=== PATIENT | female | born 1990 | race Caucasian/White ===

== ENCOUNTER 2016-05-14 05:31 | Inpatient (IN) | payer OTHER ==
[~2016-05-14] VITALS: Ht 163.8 cm; Wt 124.7 kg
[2016-05-14] MEDS ORDERED: CeFAZolin Inj 2 GM in IV Premix 1 EACH IV ONE (06:00)
[2016-05-14] MEDS ORDERED: Lactated Ringer's 1,000 ML IV SCH (06:00)
[2016-05-14] MEDS ORDERED: Carboprost 250 mCg/mL Inj IM PRN ×2 (06:00→09:35)
[2016-05-14] MEDS ORDERED: Oxytocin 10 Unit/mL Inj IM PRN ×2 (06:00→09:35)
[2016-05-14] MEDS ORDERED: CeFAZolin Inj 2 GM in IV Premix 1 EACH IV SCH (06:00)
[2016-05-14] MEDS ORDERED: Sodium Citrate-Citric Acid 15 mL Solution PO SCH (06:00)
[2016-05-14] MEDS ORDERED: Hemorrhage Kit, Post Partum XX ONE ×2 (06:00→09:35)
[2016-05-14] MEDS ORDERED: Methylergonovine 0.2 mg/mL Inj IM PRN ×2 (06:00→09:35)
[2016-05-14 06:28] LABS: Mean Corpuscular Hemoglobin 27.9 pg (27.0-35.0); Mean Corpuscular Volume 85.7 fL (81-100)
[2016-05-14] MEDS ORDERED: Morphine PF 1 mg/mL 10 mL Inj ONE (07:24)
[2016-05-14] MEDS ORDERED: EPHEDrine Sulfate 50 mg/mL Inj IVPUSH PRN (08:20)
[2016-05-14] MEDS ORDERED: Lactated Ringer's 1,000 ML IV PRN (08:20)
[2016-05-14] MEDS ORDERED: Ondansetron 2 mg/mL 2 mL Inj IVPUSH PRN (08:20)
[2016-05-14] MEDS ORDERED: MetoCLOpramide 5 mg/mL 2 mL Inj IVPUSH PRN (08:20)
[2016-05-14] MEDS ORDERED: HYDROmorphone 1 mg/mL Inj IVPUSH PRN (08:20)
[2016-05-14] MEDS ORDERED: Dexamethasone 4 mg/mL Inj IVPUSH PRN (08:20)
[2016-05-14] MEDS ORDERED: Morphine PF 1 mg/mL 10 mL Inj EPIDURAL ONE (08:20)
[2016-05-14] MEDS ORDERED: Atropine 0.4 mg/mL Inj IV PRN (08:20)
[2016-05-14] MEDS ORDERED: fentaNYL-PF 50 mCg/mL 2 mL Inj IVPUSH PRN (08:20)
--- NOTE | 2016-05-14 08:20 | PCM.HPANE ---
Patient Data Surgeon Admitting Provider:Jovany Rose MD Attending Provider:Jovany Rose MD Primary Care Physician:Zane Other Provider:Sandi Owen Anesthesia Reason for Visit Repeat Repeat Ht/WT & BMI Body Mass Index Allergies Coded Allergies: No Known Allergies (Unverified Allergy, 11/28/11) Past Anesthesia History Anesthesia History: Denies:: Abnormal Airway, Anesthesia Reactions, Difficult Intubation Diabetes History Hx Diabetes?: No MRSA MRSA: No History History of ENT Problems?: No HEENT History: Denies:: Abnormal Airway Cataracts Difficult Intubation Dysphagia Hearing Problem Sinus Problem TMJ Hx of Heart Problems?: No Cardiovascular History: Denies:: Abdominal Aortic Aneurism Atrial Fibrillation Cardiac Surgery Chest Pain Congestive Heart Failure Edema Heart Murmur Hypertension Irregular Heartbeat Pacemaker Rheumatic Fever Thrombophlebitis Valvular Heart Disease Hx of Respiratory Problem?: No Respiratory History: Denies:: Asthma COPD Chest Surgery Cough Dyspnea Emphysema Hemoptysis Oxygen Administration Pneumonia Pulmonary Embolism Tuberculosis Hx Neurologic Problems?: Yes Neurological History: Positive for:: Headaches Denies:: Alzheimer's Disease CVA Dementia Dizziness Multiple Sclerosis Parkinson's Disease Seizures Hx of GI Problems?: No Gastrointestinal History: Denies:: Cirrhosis Diverticulitis Gastroesphageal Reflux Gastrointestinal Bleeding Heartburn Hepatitis Hiatal Hernia Rectal Bleeding Hx of Problems?: No Genitourinary History: Denies:: HX of Hemodialysis Kidney Stones Urinary Tract Infection Female Hx: Positive for:: Currently Skin History: Denies:: History Skin Disorders? Pressure Ulcers Hx Musculoskeletal Problems?: No Musculoskeletal History: Denies:: Back Injury Degenerative Joint Joint Replacement Musculoskeletal Trauma Systemic Lupus Hx of Psycho/Social Problems?: No Psycho Social History: Denies:: Anxiety Bipolar Disorder Hx Depression Suicide Attempt Hx Surgeries?: Yes (appy) Hx Any Other Health Problems?: No Other History: Denies:: Cancer Endocrine Disease Hospitalization Thyroid Disease History Blood Transfusions: Denies:: Blood Transfusions Hx Diabetes: No Hx Alcohol Use: NoHx Substance Use: No Smoking Status: Never Smoker Stop/Bang Risk Assessment Category Category 1A: Patient has history of documented sleep apnea, and HAS NOT received any narcotic, sedative or anesthesia administration during this stay. Category 1B: Patient has history of documented sleep apnea, and HAS received any narcotic , sedative or anesthesia administration during this stay Category 2: Patient has SUSPECTED Obstructive Sleep Apnea, and HAS received any narcotic , sedative or anesthesia administration during this stay. Category 3: Patient has SUSPECTED Obstructive Sleep Apnea and HAS NOT received narcotic, sedative or anesthesia administration during this stay. Category 4: Outpatient in Procedural Areas with known sleep apnea or who screen positive for High Risk via the STOP/BANG questionnaire. Exam Exam General Appearance: Alert, Oriented X3, Cooperative, No Acute Distress HEENT/AIRWAY: MP 2 Lungs: Clear to Auscultation, Normal Air Movement Heart: Exam Unremarkable, Regular Rate/Rhythm, No Murmurs/Rubs/Gallops Meds/Labs/Diagnostics Admission Meds Current Medications Lactated Ringer's (Lr) 1,000 ml @ 125 mls/hr Q8H IV Last administered on 06:23; Start 05/14/16 at 06:00; Stop 05/14/16 at 13:59 Citric Acid/ Sodium Citrate 30 ml 30 ml PREOP PO Last administered on 07:15; Start 05/14/16 at 06:00; Stop 05/14/16 at 06:01; Status DC Cefazolin Sodium/ Dextrose/Premix (Ancef Inj/IV Premix) 50 ml @ 150 mls/hr PREOP ONCE IV Last administered on 05/14/16 07:15; Start 05/14/16 at 06:00; Stop 05/14/16 at 06:19; Status DC Labs Test 05/14/16 05:55 White Blood Count 8.3th/mm3 (3.8-10.1) Red Blood Count 4.33mil/mm3 (3.90-5.20) Hemoglobin 12.1g/dL (12.0-15.6) Hematocrit 37.1% (35.0-46.0) Mean Corpuscular Volume 85.7fL (81-100) Mean Corpuscular Hemoglobin 27.9pg (27.0-35.0) Mean Corpuscular Hemoglobin Concent 32.6% (32.0-37.0) Red Cell Distribution Width 12.9% (12.3-15.4) Platelet Count 178bil/L (150-400) Plan Impression Patient chart reviewed, patient interviewed and anesthestic plan with risks, benefits, and alternatives discussed, and informed consent obtained. ASA Physical Status: ASA2 Mod Systemic Disease Anesthetic Plan: SAB Bene/Risks/Altern/Consents: Yes HP Complete Prior to Induction: Yes Jl Bryson MD May 14, 2016 08:20
--- NOTE | 2016-05-14 09:31 | PCM.ANEP1 ---
Post Anesthesia Phase 1 PACU Phase 1 Assessment Vital Signs VSS Anesthetic Administered: SAB Level of Alertness: Awake, talking YATES's with Equal Strength: No Pain: No Nausea or Vomiting: No Oxygen Delivery: Room Air Lungs: Clear to Auscultation, Normal Air Movement Dermatome Level: T10 (Umbilicus) Jl Bryson MD May 14, 2016 09:31
--- NOTE | 2016-05-14 09:32 | PCM.ANEP2 ---
Post Anesthesia Evaluation ASA/CMS Post Anesthesia VS in Patient's Normal Range?: Yes Resp Stable; Airway Patent?: Yes CV Function & Hydration Stable: Yes Mental Status Recovered?: Yes Pain control Satisfactory?: Yes N/V Control Satisfactory?: Yes Jl Bryson MD May 14, 2016 09:32
[2016-05-14] MEDS ORDERED: LANOlin HPA 7 Gm Ointment TOPICAL PRN (09:35)
[2016-05-14] MEDS ORDERED: diphenhydrAMINE 50 mg Capsule PO PRN (09:35)
[2016-05-14] MEDS ORDERED: HYDROcodone-APAP 5-325 mg Tablet PO PRN (09:35)
[2016-05-14] MEDS ORDERED: Acetaminophen IV 1,000 MG in IV Premix 1 EACH IV PRN (09:35)
[2016-05-14] MEDS ORDERED: Sodium Chloride LOK Flush 10 mL Syringe IVFLUSH PRN (09:35)
[2016-05-14] MEDS ORDERED: Oxytocin 30 Units/500 mL LR 30 UNITS in IV Premix 1 EACH IV PRN (09:35)
[2016-05-14] MEDS ORDERED: Phenylephrine/NS 100 mCg/mL 10 mL Syringe IVPUSH ONE (13:22)
[2016-05-14] MEDS ORDERED: Dexamethasone 4 mg/mL Inj ONE (13:22)
[2016-05-14] MEDS ORDERED: Ondansetron 2 mg/mL 2 mL Inj ONE (13:22)
[2016-05-14] MEDS ORDERED: Oxytocin 10 Unit/mL Inj ONE (13:22)
[2016-05-14] MEDS: Lactated Ringer's 1,000 ML IV SCH ×2 (13:43→17:31)
[2016-05-14] MEDS ORDERED: hydrOXYzine Pamoate 25 mg Capsule PO PRN (16:40)
[2016-05-14] MEDS: oxyCODONE-Acetamin 5-325 mg Tablet PO PRN ×2 (18:18→23:20)
[2016-05-15] MEDS: Lactated Ringer's 1,000 ML IV SCH ×3 (01:31→17:31)
[2016-05-15] MEDS: oxyCODONE-Acetamin 5-325 mg Tablet PO PRN ×3 (05:03→19:30)
[2016-05-15 07:29] LABS: Mean Corpuscular Hemoglobin 28.2 pg (27.0-35.0); Mean Corpuscular Volume 87.6 fL (81-100)
--- NOTE | 2016-05-15 08:38 | PCM.PNOBPP ---
Subjective Date of Service May 15, 2016 Post : Repeat Ceserean Delivery Lochia: Normal Pain Management: PO pain meds Gastrointestinal: Good Appetite, No N/V Postop Activity: Ambulating Independently Labs Laboratory Tests 05/15/16 07:02: White Blood Count 9.9, Red Blood Count 3.55, Hemoglobin 10.0, Hematocrit 31.1, Mean Corpuscular Volume 87.6, Mean Corpuscular Hemoglobin 28.2, Mean Corpuscular Hemoglobin Concent 32.2, Red Cell Distribution Width 13.0, Platelet Count 144 Exam Vital Signs Vital Signs: VS reviewed, stable Exam Abdomen: Fundus firm Lungs: Clear to Auscultation General: Alert, Oriented X3 Surgical Wound : Incision General Appearence: [place] Dressing & Drainage Status: Dry & Intact OB Post Assessment/Plan Problems: (1) Status post repeat low transverse section Status: Acute ICD Code: Z98.89 Pain Evaluation: Adequate Pain Control Post plan: Continue routine post care, Discharge home tomorrow Jovany Rose MD May 15, 2016 08:38
--- NOTE | 2016-05-15 09:28 | OP ---
[address] [address] OPERATIVE REPORT PATIENT: REGINA CODY : 1990 MR#: [id number] ADMIT: 05/14/2016 JOB ID: [id number] CORRECTED REPORT: DATE OF SURGERY: 05/14/2016 PREOPERATIVE DIAGNOSIS(ES): 1. 3, para 1 female at 39 weeks estimated gestational age. 2. Prior history of section. 3. Breech presentation of fetus. 4. History of anxiety and depression. 5. Undesired fertility. POSTOPERATIVE DIAGNOSIS(ES): 1. 3, para 1 female at 39 weeks estimated gestational age. 2. Prior history of section. 3. Breech presentation of fetus. 4. History of anxiety and depression. 5. Undesired fertility. SURGERY: 1. Repeat low transverse section via Pfannenstiel incision. 2. Bilateral tubal ligation. SURGEON: Jovany Rose MD. CARDIOLOGY PHYSICIAN: KALLIE Jeffries. ANESTHESIA: Spinal. INDICATIONS: As above. COMPLICATIONS: None. FINDINGS: 1. Vigorous , female, in footling breech presentation. 2. Normal uterus, tubes, and ovaries, with minimal scar tissue. ESTIMATED BLOOD LOSS: 700 cc. FLUIDS IN: 1200 cc during the surgery. URINE OUT: 100 cc clear urine at the end of the procedure. PATHOLOGY: Tubes sent to Pathology. DETAIL: The patient was brought back to the OR, where spinal anesthesia was performed. Then, 2 g of IV Ancef were given prior to the procedure. The patient was prepped and draped in the usual fashion. A procedural time-out was done. Her prior site was used for the starting point of this surgery. The incision was made and carried down to the underlying layer of fascia using the knife. The fascia was incised in midline and this incision was carried laterally in each direction using the Bledsoe scissors. The fascia was then elevated both superiorly and inferiorly and dissected off the underlying layer of muscle. Once this had been done, the muscle was entered at a central defect point superiorly to the bladder. This was done with my fingers, and the peritoneal layer was also entered using my fingers. The amount of space available was not adequate just with normal stretching. I created additional space by taking the fascia up higher. I also cut laterally with the Metzenbaum scissors into the peritoneal layer. The inferior aspect was unobtainable from an extension standpoint because the bladder was present right there. Once I made adequate space, bladder blade was inserted and the bladder flap was created. The bladder blade was reinserted, and the uterine incision was done using the knife but final entry into the uterus was done with my fingers. The bandage scissors was used to extend the uterine incision. Clear fluid resulted when the amniotic sac ruptured. The examination of the uterus revealed footling breech. I delivered this in the usual fashion and, of note, is that the delivery of the head was delayed by about 30 seconds given that the right arm was stuck straight up and had to be reduced to deliver the shoulder. The head itself required additional flexion by pressing on the mandible. This maneuver resulted in the delivery of the , and good tone was noted. The cord was clamped and cut, and the infant was handed off to the waiting nurses. Immediate cry occurred. After standard warming and drying, the was returned to her mom during the rest of the surgery. The placenta was extracted manually after cord blood was sent for analysis. Once this had been done, the uterus was exteriorized and cleared of all membranes. The internal os was dilated using a ring forceps. The uterine tone was noted to be firm, and Pitocin was running. Once this had been done, the Allis clamps were used to corina the uterine incision. A 1-0 chromic suture was used in a running, locked fashion to close uterus and only one additional [id number] suture was needed to stop bleeding on the right portion of the uterine incision wound. The bladder peritoneal edge was cauterized, and this did not continue to bleed either. Attention was paid to the tubes, where a modified Jhonathan technique was used to cut a 1-2 cm segment out of each tube with two ligations on each cut end of each tube. These ligations were done with 2-0 plain suture. The cut ends of each tube were cauterized. The ends were inspected for bleeding and none was found. Once I was satisfied with hemostasis and the pelvis was irrigated, the uterus was returned back into the pelvis. Inspection was done of both the uterine incision, as well as the tubes, and no additional bleeding was found. The abdominal muscle was reapproximated using 2-0 chromic in a running fashion. Once this been done, the fascia was reapproximated using 0 Vicryl in a running fashion. A subcutaneous layer of running 2-0 plain suture was performed. Irrigation of the subcutaneous tissue was done. The skin was closed using fabián. A pressure dressing was applied. The patient was in excellent condition following the procedure. She was taken back to her preoperative room. Counts were correct x3. Corrected by GS 05/18/16 at 11:44am Corrected DOS.
--- NOTE | 2016-05-15 11:44 | PATH ---
SURGICAL PATHOLOGY Attending Physician:Jovany Rose MD CASE STATUS: Signed Out PATIENT NAME: REGINA CODY PID: [id number] : 1990 DATE COLLECTED:05/14/2016 17:22 SPECIMEN: Fallopian Tube, Sterilization CLINICAL HISTORY: A: BILATERAL FALLOPIAN TUBES FINAL DIAGNOSIS: 1.SEGMENTS OF BILATERAL FALLOPIAN TUBES (STERILIZATION PROCEDURE):NO SIGNIFICANT PATHOLOGICAL CHANGE. ICD10 code Z30.2 GROSS DESCRIPTION: The specimen is received in one formalin filled container labeled with the patient's name, sublabeled "bilateral fallopian tubes" and consists of 2 cylindrical shaped portions of tissue. The first measures 0.6 CM in diameter by 0.3 CM in length. The specimen is inked blue and entirely submitted in cassette A. to be possibly further sectioned at the time of embedding. The second measures 0.6 CM in diameter by 0.3 CM in length. The specimen is inked black and entirely submitted in cassette B. to be possibly further sectioned at the time of embedding. 05/14/2016 DAC MICRO DESCRIPTION: See diagnosis. ICD-9 CODES: CPT CODES: 1: 48985 Electronically Signed Out Tank Hinton MD [facility] [address], [place] [address] Technical component performed at [facility], [address] [place] [address] Ave[address], [place], [address]
[2016-05-16] MEDS: oxyCODONE-Acetamin 5-325 mg Tablet PO PRN ×3 (00:41→12:34)
[2016-05-16] MEDS: Lactated Ringer's 1,000 ML IV SCH (01:31)
--- NOTE | 2016-05-16 11:05 | PCM.DC.OB ---
Obstetrical Discharge Summary Date of Service May 16, 2016 Date of hospital admission May 14, 2016 at 05:31 Date of Discharge: May 16, 2016 Providers Admitting Physician: Jovany Rose MD Primary Care Physician: Nopcp Attending Physician: Jovany Rose MD Problems: (1) Status post repeat low transverse section Status: Acute ICD Code: Z98.89 Consultations None Invasive procedures Repeat LTCS and BTL Date of Procedure: May 16, 2016 Hospital Course: Patient presented for repeat and tubal ligation. No complications. Normal recovery. Follow-up plan See me in two weeks. Discharge Diet: No restrictions Discharge Activity-General: Pelvic Rest for 6 weeks, Be up and about, Activity as pain allows, No lifting >15 pounds for 2 weeks Jovany Rose MD May 16, 2016 11:05
[2016-05-16] MEDS ORDERED: OXYC1TAB24 PO (11:11)
[2016-05-16] MEDS ORDERED: [UNRECOGNIZED DRUG - SUPPLY] (11:11)
[2016-05-16] MEDS ORDERED: IBUP800T28 PO (11:11)
[2016-05-16] MEDS ORDERED: DOCU-41 PO (11:11)
--- NOTE | 2016-05-16 11:13 | PCM.DIOB ---
Obstetrical Disch Instruction Date of Service: May 16, 2016 Dates of Hospitalization Date of Hospital Admission May 14, 2016 at 05:31 Providers Admitting Physician: Jovany Rose MD Primary Care Physician: Nopkim Attending Physician: Jovany Rose MD Discharge Diagnosis Problems: (1) Status post repeat low transverse section Status: Acute ICD Code: Z98.89 Diet Discharge Diet: No restrictions Activity Discharge Activity-General: Pelvic Rest for 6 weeks, Balance rest and activity , Activity as pain allows, Activity as energy allows, No lifting >15 pounds for 2 weeks Dressing and Incisional Care Dressing Care: Allow Steri Stripes to fall off Hygiene: May shower, NO bathtub, hot tub or whirlpool Follow Up Plan Follow Up Plan See me at well child checks and again for 8 weeks post Follow-up Provider (F9): Jovany Rose MD Follow-up appointment: Weeks (8) Call your provider for: Fever or Chills, Shortness of breath, Heavy vaginal bleeding, Heavy bleeding, Excessive constipation, Vaginal discomfort, Red painful breasts Jovany Rose MD May 16, 2016 11:13
[2016-05-16 12:06] VITALS: BP 135/81; PULSE 100; RESP 18
== END 2016-05-16 15:16 | disposition home or self-care (01) | DRG 766 ==
LOC: FBC 05:31 → EDSTATUS 07:15
PROVIDERS: ADMIT Family Medicine; ATTEND Family Medicine
PROC: 0UL70ZZ Occlusion of Bilateral Fallopian Tubes, Open Approach (ICD-10-PCS; 2016-05-14)
PROC: 10D00Z1 Extraction of Products of Conception, Low, Open Approach (ICD-10-PCS; principal; 2016-05-14 07:27)
DX: O34.211 Maternal care for low transverse scar from previous cesarean delivery (principal); Z37.0 Single live birth; Z3A.39 39 weeks gestation of pregnancy; O32.8XX0 Maternal care for other malpresentation of fetus, not applicable or unspecified; Z30.2 Encounter for sterilization